=== PATIENT | male | born 1985 | race American Indian/Alaskan Native ===

== ENCOUNTER 2020-10-30 14:08 | Outpatient (CLI) | payer OTHER ==
[2020-10-30] MEDS ORDERED: LIDOCAINE (4%) 40 MG/ML TOPICAL SOLN 50 ML BOTTLE TP ONE (14:39)
[2020-10-30] MEDS ORDERED: SODIUM CHLORIDE 0.9% IRR 500 ML BOTTLE IR ONE (16:49)
== END 2020-10-30 14:09 | disposition home or self-care (01) ==
LOC: WOUND 14:08
PROVIDERS: ATTEND Surgery
DX: S97.82XA Crushing injury of left foot, initial encounter (principal); Z87.891 Personal history of nicotine dependence; W23.0XXA Caught, crushed, jammed, or pinched between moving objects, initial encounter; Y93.89 Activity, other specified; Y92.89 Other specified places as the place of occurrence of the external cause; Y99.8 Other external cause status
CPT/HCPCS: 11042; 11045; G0463; 99204; 99214

== ENCOUNTER 2020-11-06 13:22 | Outpatient (CLI) | payer OTHER ==
[2020-11-06] MEDS ORDERED: LIDOCAINE (4%) 40 MG/ML TOPICAL SOLN 50 ML BOTTLE TP ONE (14:00)
== END 2020-11-06 13:23 | disposition home or self-care (01) ==
LOC: WOUND 13:22
PROVIDERS: ATTEND Surgery
DX: S97.82XD Crushing injury of left foot, subsequent encounter (principal); Z87.891 Personal history of nicotine dependence; W23.0XXD Caught, crushed, jammed, or pinched between moving objects, subsequent encounter

== ENCOUNTER 2020-11-13 10:10 | Outpatient (CLI) | payer OTHER ==
[2020-11-13] MEDS ORDERED: LIDOCAINE (4%) 40 MG/ML TOPICAL SOLN 50 ML BOTTLE TP ONE (10:30)
== END 2020-11-13 10:11 | disposition home or self-care (01) ==
LOC: WOUND 10:10
PROVIDERS: ATTEND Surgery
DX: S97.82XD Crushing injury of left foot, subsequent encounter (principal); Z87.891 Personal history of nicotine dependence; W23.0XXD Caught, crushed, jammed, or pinched between moving objects, subsequent encounter

== ENCOUNTER 2020-11-20 13:58 | Outpatient (CLI) | payer OTHER ==
[2020-11-20] MEDS ORDERED: LIDOCAINE (4%) 40 MG/ML TOPICAL SOLN 50 ML BOTTLE TP SCH (14:30)
[2020-11-20] MEDS ORDERED: SODIUM CHLORIDE 0.9% IRR 500 ML BOTTLE IR ONE (16:16)
== END 2020-11-20 13:59 | disposition home or self-care (01) ==
LOC: WOUND 13:58
PROVIDERS: ATTEND Surgery
DX: S97.82XD Crushing injury of left foot, subsequent encounter (principal); Z87.891 Personal history of nicotine dependence; W23.0XXD Caught, crushed, jammed, or pinched between moving objects, subsequent encounter

== ENCOUNTER 2020-12-04 13:51 | Outpatient (CLI) | payer OTHER ==
[2020-12-04] MEDS ORDERED: LIDOCAINE (4%) 40 MG/ML TOPICAL SOLN 50 ML BOTTLE TP SCH (14:30)
== END 2020-12-04 13:52 | disposition home or self-care (01) ==
LOC: WOUND 13:51
PROVIDERS: ATTEND Surgery
DX: S97.82XD Crushing injury of left foot, subsequent encounter (principal); Z87.891 Personal history of nicotine dependence; W23.0XXD Caught, crushed, jammed, or pinched between moving objects, subsequent encounter

== ENCOUNTER 2020-12-04 14:48 | Emergency (ER) | payer SELFPAY | END 2020-12-04 17:17 | disposition left against medical advice (07) | LOC: ED 14:48 | DX: Z53.21 Procedure and treatment not carried out due to patient leaving prior to being seen by health care provider (principal) ==

== ENCOUNTER 2020-12-25 13:53 | Outpatient (CLI) | payer OTHER ==
[2020-12-25] MEDS ORDERED: LIDOCAINE (4%) 40 MG/ML TOPICAL SOLN 50 ML BOTTLE TP ONE (13:55)
== END 2020-12-25 13:54 | disposition home or self-care (01) ==
LOC: WOUND 13:53
PROVIDERS: ATTEND Surgery
DX: S97.82XD Crushing injury of left foot, subsequent encounter (principal); Z87.891 Personal history of nicotine dependence; W23.0XXD Caught, crushed, jammed, or pinched between moving objects, subsequent encounter
CPT/HCPCS: 99213; G0463